=== PATIENT | male | born 1945 | race Caucasian/White ===

== ENCOUNTER 2019-03-27 10:35 | Day surgery (SDC) | payer MEDICARE, BC ==
[2019-03-26 14:58] VITALS: BMI 25.4
[2019-03-27 11:09] LABS: #Eosinphils 0.2 thou/uL (0.0-0.7); #Lymphocytes 1.3 thou/uL (1.20-3.40); #Monocytes 0.7 thou/uL (0.11-0.59); #Neutrophils 4.4 thou/uL (1.40-6.50); %Basophils 0.4 % (0.0-1.0); %Eosinophils 3.7 % (0.0-10.0); %Lymphocytes 19.5 % (21.0-51.0); %Monocytes 10.7 % (0.0-10.0); %Neutrophils 65.7 % (42.0-75.0); Hemoglobin 16.5 g/dL (14.0-18.0); Mean Corpuscular HGB CONC 33.3 g/dL (32.0-36.0); Mean Corpuscular Hemoglobin 31.1 pg (27.0-31.0); Mean Corpuscular Volume 93.4 fL (78.0-98.0); Mean Platelet Volume 7.1 fL (7.4-10.4); Platelet Count 241 thou/uL (130-400); RBC Distribution Width 11.8 % (11.5-14.5); White Blood Cell (WBC) Count 6.6 thou/uL (4.8-10.8)
[2019-03-27] MEDS ORDERED: ceFAZolin Sodium (SDC) 2 GM/100 ML BAG ONE (11:10)
[2019-03-27 11:17] LABS: PTT 26.1 SEC (22.9-36.1); Prothrombin Time 12.9 SEC (12.0-14.7)
[2019-03-27 11:27] LABS: Anion Gap 12 mmol/L (10-20); BUN (Urea Nitrogen) 19 mg/dL (8.4-25.7); Calc. Creatinine Clearance 78 mL/min (70-130); Calcium 9.1 mg/dL (7.8-10.44); Carbon Dioxide 23 mmol/L (23-31); Chloride 108 mmol/L (98-107); Estimated GFR-MDRD 71; Glucose 96 mg/dL (83-110); Potassium 4.1 mmol/L (3.5-5.1); Sodium 139 mmol/L (136-145)
[2019-03-27] MEDS ORDERED: Midazolam HCl 2 mg/2 ml Vial ONE (13:02)
[2019-03-27] MEDS ORDERED: Fentanyl 100 MCG/2 ML VIAL ONE (13:02)
--- NOTE | 2019-03-27 16:35 | OP ---
DATE OF PROCEDURE: 03/27/2019 PREOPERATIVE DIAGNOSES: Meatal stenosis and urethral bleeding. POSTOPERATIVE DIAGNOSES: Meatal stenosis and urethral bleeding. PROCEDURES PERFORMED: Cysto urethral biopsy, removal of foreign body tissue from the bladder, and placement of a Beaulieu catheter. ANESTHETIC: General. EBL: Minimal. FINDINGS: He has a slightly hypospadiac meatus. He has some meatal stenosis. Just inside the meatus at the 12 o'clock position. There was a small very vascular lesion that was three dimensional measuring about maybe half a centimeter in size. We could feel it on palpation of the urethra and we were able to biopsy this through the meatus with a biopsy forceps and remove two bites of it, which then allowed us to look in with a 17-Danish sheath. In the bladder, we found another separate piece of tissue slightly bigger than this, which I feel most likely was the rest of this mass that pushed off and down the urethra into the bladder when we passed the scope and this was also removed and sent to Pathology. The rest of the urethra proximal to this was all completely normal. The prostatic urethra was normal apart from some [id number] lateral and median lobe hypertrophy. The bladder had mild trabeculation. Two ureteral orifices in normal position. There is no evidence of bladder tumor, stone, or fistula. There was a soft tissue foreign body, which again is probably from the distal urethra. The actual area that this is I think is probably the fossa navicularis or for the great very distal aspect of the urethra. DRAINS PLACED: An 18-Danish Beaulieu catheter with Councill tip catheter with 20 mL. OPERATIVE INDICATIONS: This is a 74-year-old white male who was on vacation for 2 to 3 weeks and started noticing some blood coming out the tip of his urethra. On exam, taken to the office. We could see that there is either a clot or blood or some tissue there just inside slightly hypospadiac and slightly stenotic meatus. It was not something I could do or see or help with this in the office, so for that reason he is coming in to this under anesthetic today. DESCRIPTION OF PROCEDURE: Obtained written and verbal consent from the patient, after receiving IV antibiotics, he was taken to operating suite. He was placed in a supine position on the treatment table. PlexiPulses were placed in his lower extremities and turned on. He was given a general anesthetic and oral obturator intubation. He was then placed in dorsal lithotomy position, sterilely prepped and draped for the above procedure. We went in initially with a 17-Danish sheath, hoping to get this through the meatus. There was; however, obvious little tissue that was in the clot, but actually somewhat hypervascular appearing tissue at about the 12 o'clock position just inside of the meatus. Using cold cup biopsy forceps, we were able to biopsy this and get a couple of pieces off this and sent those off for pathology. This is probably around the region of the fossa or just at the very distal penile urethra. At this point, we went ahead and then, fed a 5-Danish [place] catheter through the meatus and then a guidewire through that curled in the urinary bladder removing then the Pollack catheter. We then brought in a 17-Danish sheath and ran the 17-Danish sheath with a 30 lens over the wire and into the bladder. This allowed us to see a fairly open meatus at the end and distal urethra. At this point, we did not really see any significant other tissue here and was not at this point bleeding much at all. There was some scar tissue just inside of the meatus and what appears to be almost some probably metaplastic skin changes, where the different mucosa is meeting this region. The rest of the urethra and prostatic urethra were normal. The bladder was filled and emptied a number of times and examined in both the 30 and 70-degree lens with above findings. While doing this, we found that there was another piece of tissue that was free floating in the bladder and felt that this probably was also part of the same distal urethral lesion that had been pushed backwards down the urethra with the scope, so we had to switch sheath out to a 20-Danish, which we did, still using the green wire as a guide, and then, we were able to use flexible grasping forceps to remove this tissue and sent off separately from the other two. We then went ahead and replaced the guidewire into the bladder and backed the scope out under direct vision. Do not see any further mass at all in the distal urethra and instruments were removed. An 18-Danish Councill tip catheter was placed easily. The balloon was inflated with about 20 mL, was hooked up to a drainage bag and it was secured to his thigh and no traction with a Velcro strap. He was then awakened and extubated, taken by stretcher to recovery room. Job ID: [id number]
== END 2019-03-27 16:25 | disposition home or self-care (01) ==
LOC: SDC 10:35
PROVIDERS: ATTEND Urology
PROC: 0TBD8ZX Excision of Urethra, Via Natural or Artificial Opening Endoscopic, Diagnostic (ICD-10-PCS; principal; 2019-03-27)
DX: N35.911 Unspecified urethral stricture, male, meatal (principal); N36.8 Other specified disorders of urethra; Q54.1 Hypospadias, penile
CPT/HCPCS: 52204; 80048; 85025; 85610; 85730; 88305; C1758; 36415; J0690; J2250; J3010

== ENCOUNTER 2021-06-16 07:32 | Outpatient (CLI) | payer MEDICARE, BC ==
[2021-06-16] MEDS ORDERED: Magnevist 469MG/ML 20 ML VIAL ONE (09:31)
== END 2021-06-16 07:33 | disposition home or self-care (01) ==
LOC: TBSIIMAG 07:32
PROVIDERS: ATTEND Urology
DX: C61 Malignant neoplasm of prostate (principal)
CPT/HCPCS: 72197; 82565